=== PATIENT | female | born 1995 | race Caucasian/White ===

== ENCOUNTER 2020-04-22 17:17 | Emergency (ER) | payer BC ==
[~2020-04-22] VITALS: Ht 152.4 cm; Wt 52.2 kg
[2020-04-22] MEDS ORDERED: LIDOCAINE HCL 1% 20 ML VIAL IJ ONE (17:45)
[2020-04-22] MEDS ORDERED: FENTANYL CITRATE 100 MCG/2 ML AMPUL ONE (18:26)
[2020-04-22] MEDS ORDERED: FENTANYL CITRATE 100 MCG/2 ML AMPUL IM ONE (18:30)
--- NOTE | 2020-04-22 18:43 | NUR ---
Patient discharged to home in stable condition. Written and verbal after care instructions given. Patient verbalizes understanding of instructions. Stressed follow up or return to ER for worsening s/s.
[2020-04-22 18:44] VITALS: BP 110/75
== END 2020-04-22 18:44 | disposition home or self-care (01) ==
LOC: ER 17:19
DX: L02.511 Cutaneous abscess of right hand (principal)
CPT/HCPCS: 10060; 96372; 99283; J3010; A4663

== ENCOUNTER 2020-04-24 09:53 | Emergency (ER) | payer BC ==
[~2020-04-24] VITALS: Ht 152.4 cm; Wt 52.2 kg
[2020-04-24] MEDS ORDERED: CLINDAMYCIN HCL 150 MG CAPSULE PO ONE (10:15)
--- NOTE | 2020-04-24 10:15 | NUR ---
PATIENT WAS MSE BY DR HOPE IN ROOM 04B. PATIENT A & O X4.
--- NOTE | 2020-04-24 10:25 | NUR ---
Patient does not wish to proceed with medical care recommended by Dr. HOPE. Patient given information related to possible complications, up to and including , which could occur as a result of leaving the hospital at this time. Patient verbalizes understanding of risks involved due to leaving against medical advice. Patient has signed AMA form.
== END 2020-04-24 10:25 | disposition left against medical advice (07) ==
LOC: ER 09:53
DX: L03.113 Cellulitis of right upper limb (principal)
CPT/HCPCS: A4663

== ENCOUNTER 2020-04-24 11:55 | Inpatient (IN) | payer BC ==
[~2020-04-24] VITALS: Ht 152.4 cm; Wt 52.2 kg
[2020-04-24] MEDS ORDERED: PIPERACILLIN/TAZOBACTAM/D5W 50 ML IV ONE (12:10)
[2020-04-24] MEDS ORDERED: VANCOMYCIN IV 200 ML ONE (12:10)
[2020-04-24] MEDS ORDERED: IV NORMAL SALINE 1000 ML BAG IV ONE (12:15)
[2020-04-24] MEDS ORDERED: PIPERACILLIN SODIUM/TAZOBACTAM 3.375 G in IV DEXTROSE 5% 50 ML IV ONE (12:15)
[2020-04-24] MEDS ORDERED: VANCOMYCIN IV 1,000 MG in IV DEXTROSE 5% 250 ML IV ONE (12:15)
[2020-04-24 12:27] LABS: BASOPHILS % (AUTO) 0.5 % (0.0-2.0); EOSINOPHILS # (AUTO) 0.2 K/uL (0.0-0.7); HEMATOCRIT 40.4 % (31.2-41.9); HEMOGLOBIN 13.4 g/dL (10.9-14.3); LYMPHOCYTES # (AUTO) 1.6 K/uL (20.0-40.0); LYMPHOCYTES % (AUTO) 24.5 % (20.5-51.5); MEAN CORPUSCULAR HEMOGLOBIN 28.9 uug (24.7-32.8); MEAN CORPUSCULAR HGB CONC 33 g/dL (32.3-35.6); MONOCYTES # (AUTO) 0.6 K/uL (2.0-10.0); MONOCYTES % (AUTO) 8.9 % (0.0-11.0); NEUTROPHILS # (AUTO) 4.2 K/uL (1.8-8.9); NEUTROPHILS % (AUTO) 63.1 % (38.5-71.5); PLATELET COUNT (AUTO) 206 K/uL (179-408); RED BLOOD CELL COUNT(AUTO) 4.64 MIL/uL (3.63-4.92); WHITE BLOOD COUNT (AUTO) 6.7 K/uL (3.8-11.8)
[2020-04-24 12:42] LABS: BILIRUBIN,DIRECT 0.1 mg/dL (0.0-0.2); BILIRUBIN,TOTAL 0.3 mg/dL (0.2-1.0); POTASSIUM 4.5 mmol/L (3.5-5.1); TOTAL PROTEIN, SERUM 7.1 g/dL (6.4-8.2)
--- NOTE | 2020-04-24 13:06 | NUR ---
GLENDA SANTIAGO CALLED BACK SPOKE WITH DR HOPE ACCEPTED FOR ADMISSION.
[2020-04-24] MEDS ORDERED: IV NS 1000 ML 1,000 ML IV PRN (13:08)
[2020-04-24] MEDS ORDERED: ONDANSETRON 4 MG/2 ML VIAL IV PRN (13:15)
[2020-04-24] MEDS ORDERED: ACETAMINOPHEN 325 MG TABLET PO PRN (13:15)
[2020-04-24] MEDS ORDERED: HYDROCODONE/APAP 5-325MG TABLET PO PRN (13:15)
[2020-04-24] MEDS ORDERED: Z GUARD REMEDY PASTE 57 GM TUBE TOP PRN (13:15)
[2020-04-24] MEDS ORDERED: TEMAZEPAM 15 MG CAPSULE PO PRN (13:15)
[2020-04-24] MEDS ORDERED: MAGNESIUM HYDROXIDE 30 ML LIQUID UDC PO PRN (13:15)
[2020-04-24] MEDS ORDERED: HYDROCODONE/APAP 10-325 MG TABLET PO PRN (13:30)
--- NOTE | 2020-04-24 13:49 | NUR ---
CLINICAL PHARMACY NOTE:VANCOMYCIN DOSING Request for vancomycin dosing on 25 y/o female 152.4cm 52.16kg for cellulitis of right hand Temp 97.8 BUN 11 Scr 1.0 WBC 6.7 also on Zosyn received vancomycin 1gm in ER Continue vancomycin 750mg ivpb q15 hours estimated trough 15.89. Will order trough level prior to 4th dose. Will continue to monitor
--- NOTE | 2020-04-24 14:05 | NUR ---
Pt. admitted to [facility], under care of GLENDA BELTRAN Belongs List completed
--- NOTE | 2020-04-24 14:37 | NUR ---
PATIENT UPSET SHE WASNT ABLE TO GO DOWN FOR A SMOKE. PATIENT UPSET AND WANTED TO LEAVE AMA. IV REMOVED AND AMA DOCUMENT SIGNED.
--- NOTE | 2020-04-24 14:45 | NUR ---
Notified Lencho Lott NP that patient is insisting to leave against medical advice.
--- NOTE | 2020-04-24 14:50 | NUR ---
PT LEFT THE UNIT AMBULATORY WITH ALL BELONGINGS, ADMISSION ASSESSMENT NOT DONE AT THIS TIME
[2020-04-24 15:07] VITALS: BP 111/44
[2020-04-24] MEDS ORDERED: PIPERACILLIN SODIUM/TAZOBACTAM 3.375 G in IV DEXTROSE 5% 50 ML IV SCH (18:00)
[2020-04-25] MEDS ORDERED: VANCOMYCIN IV 750 MG in IV DEXTROSE 5% 250 ML IV SCH (04:00)
== END 2020-04-24 14:50 | disposition left against medical advice (07) | DRG 603 ==
LOC: ER 11:55 → MEDSURG3 13:31
PROVIDERS: ADMIT Nurse Practitioner Acute Care; ATTEND Nurse Practitioner Acute Care
DX: L03.113 Cellulitis of right upper limb (principal); F11.10 Opioid abuse, uncomplicated; F17.210 Nicotine dependence, cigarettes, uncomplicated; Z91.19 Patient's noncompliance with other medical treatment and regimen
CPT/HCPCS: 36415; 73130; 85025; 85730; 87040; A4663; G0378; J2543; J3370; J7030; J7060